=== PATIENT | female | born 1950 | race Hispanic/Latino ===

== ENCOUNTER 2017-11-09 08:10 | Outpatient (CLI) | payer OTHER ==
--- NOTE | 2017-11-10 12:16 | Mammography Report ---
BILATERAL DIGITAL SCREENING MAMMOGRAM with CAD : 11/09/17 08:10:00 CLINICAL: Routine screening. COMPARISON:07/21/16 FINDINGS: The breasts are heterogeneously dense, which may obscure small masses.Left upper outer biopsy clip. No mass, architectural distortion or suspicious calcifications. IMPRESSION: No mammographic evidence of malignancy. BI-RADS CATEGORY: 2 -- Benign RECOMMENDATION: Routine mammographic screening in one year. COMMENT: Patient follow-up letters are generated by our [employer] application.
== END 2017-11-09 08:11 | disposition home or self-care (01) ==
LOC: SPVWC 08:10
PROVIDERS: ATTEND Internal Medicine
DX: Z12.31 Encounter for screening mammogram for malignant neoplasm of breast (principal)
CPT/HCPCS: 77067

== ENCOUNTER 2018-11-10 14:32 | Outpatient (CLI) | payer OTHER ==
--- NOTE | 2018-11-10 15:45 | Mammography Report ---
BILATERAL DIGITAL SCREENING MAMMOGRAM with CAD : 11/10/18 14:32:00 CLINICAL: Routine screening.History of a left benign surgical biopsy. COMPARISON:11/09/17 FINDINGS: The breasts are heterogeneously dense, which may obscure small masses.A left upper outer surgical clip site of surgical scar. Bilateral benign calcifications. No mass, suspicious architectural distortion or suspicious calcifications. IMPRESSION: No mammographic evidence of malignancy. BI-RADS CATEGORY: 2 -- Benign RECOMMENDATION: Routine mammographic screening in one year. COMMENT: Patient follow-up letters are generated by our [employer] application.
== END 2018-11-10 14:33 | disposition home or self-care (01) ==
LOC: SPVWC 14:32
PROVIDERS: ATTEND Internal Medicine
DX: Z12.31 Encounter for screening mammogram for malignant neoplasm of breast (principal)
CPT/HCPCS: 77067

== ENCOUNTER 2019-11-23 08:15 | Outpatient (CLI) | payer OTHER, MEDICARE ==
--- NOTE | 2019-11-23 10:53 | Mammography Report ---
DIGITAL SCREENING MAMMOGRAM WITH CAD, 11/23/2019 INDICATION: Routine screening mammography. History of left benign biopsy. TECHNIQUE: Digital bilateral 2D mammography was obtained in the craniocaudal and mediolateral obliq ue projections. This examination was interpreted with the benefit of Computer-Aided Detection analysi s. COMPARISON: 11/10/18 FINDINGS: Breast Density: The breasts are heterogeneously dense, which may obscure small masses. There is no evidence of dominant mass, suspicious calcifications or architectural distortion in eithe r breast. A left upper outer biopsy clip. Bilateral benign calcifications. IMPRESSION: No mammographic evidence of malignancy. Follow up recommendation: Routine yearly BI-RADS Category 2: Benign. A "normal" or negative report should not discourage follow up or biopsy of a clinically significant f inding. A written summary of these findings will be mailed to the patient. The patient will be entered into a mammography reporting system which will generate a reminder letter for the patient's next appointmen t at the appropriate interval. The [employer] recommends yearly mammograms starting at age 40 and continuing as l sada as a woman is in good health. Breast MRI is recommended for women with an approximate 20-25% or greater lifetime risk of breast cancer, including women with a strong family history of breast or ova kirby cancer or who have been treated for Hodgkin's disease. Signer Name: Cornelius Mccullough MD Signed: 11/23/2019 10:49 AM Workstation Name: [id number]
== END 2019-11-23 08:16 | disposition home or self-care (01) ==
LOC: SPVWC 08:15
PROVIDERS: ATTEND Internal Medicine
DX: Z12.31 Encounter for screening mammogram for malignant neoplasm of breast (principal)
CPT/HCPCS: 77067

== ENCOUNTER 2020-11-24 08:26 | Outpatient (CLI) | payer OTHER, MEDICARE ==
--- NOTE | 2020-11-24 09:08 | Mammography Report ---
DIGITAL SCREENING MAMMOGRAM WITH CAD, 11/24/2020 INDICATION: Routine screening mammography. TECHNIQUE: Digital bilateral 2D mammography was obtained in the craniocaudal and mediolateral obliq ue projections. This examination was interpreted with the benefit of Computer-Aided Detection analysi s. COMPARISON: 11/23/2019. FINDINGS: Breast Density: The breasts are heterogeneously dense, which may obscure small masses. There is no evidence of dominant mass, suspicious calcifications or architectural distortion in eithe r breast. Benign-appearing calcifications unchanged. Postbiopsy change left breast. IMPRESSION: Follow up recommendation: Routine yearly BI-RADS Category 2: Benign. A "normal" or negative report should not discourage follow up or biopsy of a clinically significant f inding. A written summary of these findings will be mailed to the patient. The patient will be entered into a mammography reporting system which will generate a reminder letter for the patient's next appointmen t at the appropriate interval. The [employer] recommends yearly mammograms starting at age 40 and continuing as l sada as a woman is in good health. Breast MRI is recommended for women with an approximate 20-25% or greater lifetime risk of breast cancer, including women with a strong family history of breast or ova kirby cancer or who have been treated for Hodgkin's disease. Signer Name: Regis Allan MD Signed: 11/24/2020 9:03 AM Workstation Name: [id number]
== END 2020-11-24 08:27 | disposition home or self-care (01) ==
LOC: SPVWC 08:26
PROVIDERS: ATTEND Internal Medicine
DX: Z12.31 Encounter for screening mammogram for malignant neoplasm of breast (principal)
CPT/HCPCS: 77067

== ENCOUNTER 2021-12-15 08:09 | Outpatient (CLI) | payer OTHER, MEDICARE ==
--- NOTE | 2021-12-16 15:28 | Mammography Report ---
DIGITAL SCREENING MAMMOGRAM WITH CAD, 12/15/2021 CLINICAL INFORMATION / INDICATION: Routine screening mammography. TECHNIQUE: Digital bilateral 2D mammography was obtained in the craniocaudal and mediolateral obliqu e projections. This examination was interpreted with the benefit of Computer-Aided Detection analysis . COMPARISON: 11/24/2020, 11/23/2019, 11/10/2018 FINDINGS: Breast Density: The breasts are heterogeneously dense, which may obscure small masses. No dominant mass, suspicious calcifications, or architectural distortion in either breast. Post-surgical changes are again noted in the upper outer left breast. Scattered bilateral breast calc ifications are again noted and appear unchanged. IMPRESSION: No mammographic evidence of malignancy. Follow up recommendation: Routine yearly BI-RADS Category 2: BENIGN. A "normal" or negative report should not discourage follow up or biopsy of a clinically significant f inding. A written summary of these findings will be mailed to the patient. The patient will be entered into a mammography reporting system which will generate a reminder letter for the patient's next appointmen t at the appropriate interval. The [employer] recommends yearly mammograms starting at age 40 and continuing as l sada as a woman is in good health. Breast MRI is recommended for women with an approximate 20-25% or greater lifetime risk of breast cancer, including women with a strong family history of breast or ova kirby cancer or who have been treated for Hodgkin's disease. Signer Name: April Brown MD Signed: 12/16/2021 3:24 PM Workstation Name: [id number]
== END 2021-12-15 08:10 | disposition home or self-care (01) ==
LOC: SPVWC 08:09
PROVIDERS: ATTEND Internal Medicine
DX: Z12.31 Encounter for screening mammogram for malignant neoplasm of breast (principal)
CPT/HCPCS: 77067